=== PATIENT | female | born 1965 | race Caucasian/White ===

== ENCOUNTER 2018-12-10 15:09 | Emergency (ER) | payer BC ==
--- NOTE | 2018-12-10 15:13 | UC ---
Throat Pain/Nasal Duane HPI - HPI Summary HPI Summary: 53 year old female with sinus congestion starting Monday. no fever, + chills , fatigue. - History of Current Complaint Stated Complaint: SINUS Time Seen by Provider: 12/10/18 15:10 Hx Last Menstrual Period: NO periods/on meds - Allergies/Home Medications Allergies/Adverse Reactions: Allergies Allergy/AdvReac Type Severity Reaction Status Date / Time MS Ibuprofen [Ibuprofen] Allergy THROAT Verified 10/17/18 09:55 ITCHING, DIFF SWALLOWING PMH/Surg Hx/FS Hx/Imm Hx - Surgical History Surgical History: Yes Surgery Procedure, Year, and Place: 1991, Rt lumpectomy 1992, wisdom teeth extraction. D&C 2005-LASER VEINS IN BILATERAL LEGS 2013 - Social History Alcohol Use: Occasionally Substance Use Type: None Smoking Status (MU): Never Smoked Tobacco Review of Systems All Other Systems Reviewed And Are Negative: Yes Constitutional: Positive: Chills, Fatigue ENT: Positive: Nasal Discharge, Sinus Congestion, Sinus Pain/Tenderness Respiratory: Positive: Cough Is Patient Immunocompromised?: No Physical Exam Triage Information Reviewed: Yes Appearance: No Pain Distress, Well-Nourished, Ill-Appearing - minimal Eyes: Positive: Conjunctiva Clear ENT: Positive: Pharynx normal, TMs normal, Sinus tenderness - frontal, max b/l. Negative: Pharyngeal erythema Neck: Positive: Supple, Nontender, No Lymphadenopathy Respiratory: Positive: Chest non-tender, Lungs clear, Normal breath sounds, No respiratory distress, No accessory muscle use. Negative: Crackles, Rhonchi, Stridor, Wheezing Cardiovascular: Positive: RRR, No Murmur Neurological Exam: Normal Psychological Exam: Normal Skin Exam: Normal Throat Pain/Nasal Course/Dx - Course Course Of Treatment: sinusitis, abx given - Differential Dx/Diagnosis Provider Diagnosis: Acute bronchitis, Acute sinusitis Discharge - Sign-Out/Discharge Documenting (check all that apply): Patient Departure All imaging exams completed and their final reports reviewed: No Studies - Discharge Plan Condition: Good Disposition: HOME Prescriptions: Albuterol HFA INHALER* [Ventolin HFA Inhaler*] 1 - 2 puff INH Q4H PRN #1 mdi PRN Reason: shortness of breath, cough Azithromycin TAB* [Zithromax TAB (Z-NATHAN) 250 mg #6 tabs] 2 tab PO .TODAY, THEN 1 DAILY #8 tab Patient Education Materials: Sinusitis (ED), Acute Bronchitis (ED) Forms: *Work Release Referrals: Manish Motley MD [Primary Care Provider] - Additional Instructions: - Increase fluid intake - Follow up with primary physician within 5-7 days for re-evaluation - Antibiotics as directed - Tylenol/ Motrin as needed for pain - Over the counter medication as needed for symptoms - Go to ER with shortness of breath, chest pain, increased pain, fever > 102. - Albuterol inhaler every 4-6 hours as needed for shortness of breath, cough - Billing Disposition and Condition Condition: GOOD Disposition: Home
--- OUTSIDE RECORDS SUMMARY | 2018-12-10 15:17 | XMS REPORT | Continuity of Care Document ---
:1965 External Reference #:[id number] Author Name Ranjana Estrada Care Team Providers Name Role Phone Manish Motley MD Primary Care Physician Unavailable Payers Type Date Identification Numbers Payment Provider Subscriber Policy Number: [id number] [facility] Joanne Mejía PayID: [id number] [facility] [address] [place] [id number] Advance Directives Description No Information Available Problems Date Description Provider Status Onset: 07/27/2018 Acquired hallux rigidus Dilan Edwards MD Active Onset: 09/07/2018 Stress fracture of metatarsal bone Dilan Edwards MD Active Family History Date Family Member(s) Problem(s) Comments General Diabetes General Heart Disease General Hypertension General Cancer General Rheumatoid Arthritis Mother Osteoarthritis Mother Knee replaced Grandmother on her Dad's side had lupus Social History Type Date Description Comments Sex Unknown 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 ETOH Use Occasionally consumes alcohol Tobacco Use Start: Unknown Patient has never smoked Smoking Status Reviewed: 12/06/18 Patient has never smoked Exercise Type/Frequency Exercises regularly Allergies, Adverse Reactions, Alerts Date Description Reaction Status Severity Comments 02/07/2017 Ibuprofen Active Medications Medication Date Status Form Strength Qnty SIG Indications Ordering Provider Levothyroxine 00/00/ Active Tablets 88mcg 1 by mouth Unknown Sodium 0000 every day Trazodone HCL 00/00/ Active Tablets 2 tablet Unknown 0000 at bedtime as needed Restasis 00/ Active Emulsion 0.05% instill 1 Unknown 0000 drop into both eyes two times daily as needed Vitamin D / Active Capsules 1 by mouth Unknown (Cholecalciferol) 0000 every day Aleve / Active Tablets 220mg as needed Unknown 0000 Pataday / Active Solution 0.2% 1 drop Unknown 0000 each eye as needed itchiness Aria Allergy / Active Tablets 180mg 1 by mouth Unknown 0000 every day Cyclobenzaprine / Active Tablets 10mg take 1 tab Unknown HCL 0000 by mouth at bed time Diclofenac Sodium / Active Tablets DR 75mg 90tab take 1 Calvin 0000 s tablet Herson, twice a M.D. day with food as needed for severe pain Vitamin B12 / Active Tablets ER 1000mcg 1 by mouth Unknown 0000 every day Sheridan / Hx Tablets 0.35mg daily Unknown - 2017 Fish Oil / Hx Capsules 1 by mouth Unknown 0000 - every day 2017 Prednisone / Hx Tablets 20mg 2 tab by Unknown 0000 - mouth 5 2017 Medications Administered in Office Medication Date Status Form Strength Qnty SIG Indications Ordering Provider Depomedrol 40MG 09/12/ Administered Injection Jackie 2018 Kristin Reyna Depomedrol 40MG 09/12/ Administered Injection Jackie 2018 Kristin Reyna Triamcinolone 07/27/ Administered Injection Dilan (Kenalog) 2017 MD Jerry Immunizations Description No Information Available Vital Signs Date Vital Result Comment 12/06/2018 4:10pm Height 65.5 inches 5'5.50" Heart Rate 84 /min BP Systolic Sitting 112 mmHg BP Diastolic Sitting 79 mmHg Respiratory Rate 14 /min Pain Level 5 11/19/2018 3:35pm Height 65.5 inches 5'5.50" Weight 205.00 lb Respiratory Rate 16 /min Body Temperature 97.4 F BMI (Body Mass Index) 33.6 kg/m2 10/22/2018 2:49pm Height 65.5 inches 5'5.50" Weight 205.00 lb BP Systolic 122 mmHg BP Diastolic 76 mmHg Respiratory Rate 18 /min Pain Level 5 BMI (Body Mass Index) 33.6 kg/m2 10/17/2018 2:57pm Height 65.5 inches 5'5.50" Weight 206.50 lb Heart Rate 84 /min BP Systolic Sitting 123 mmHg BP Diastolic Sitting 95 mmHg Pain Level 6 O2 % BldC Oximetry 98 % BMI (Body Mass Index) 33.8 kg/m2 10/09/2018 3:14pm Height 65.5 inches 5'5.50" Weight 205.00 lb Respiratory Rate 15 /min Pain Level 5 BMI (Body Mass Index) 33.6 kg/m2 09/14/2018 8:30am Height 65.5 inches 5'5.50" Heart Rate 88 /min Respiratory Rate 18 /min Body Temperature 98.3 F Pain Level 6 09/12/2018 2:19pm Height 65.5 inches 5'5.50" Weight 205.00 lb Heart Rate 85 /min BP Systolic 122 mmHg BP Diastolic 83 mmHg Body Temperature 98.0 F BMI (Body Mass Index) 33.6 kg/m2 09/07/2018 1:58pm Height 65.25 inches 5'5.25" Heart Rate 96 /min Respiratory Rate 16 /min Body Temperature 97.6 F Pain Level 5 07/27/2018 1:24pm Height 65.25 inches 5'5.25" Heart Rate 68 /min Respiratory Rate 12 /min Body Temperature 97.8 F Pain Level 8 07/25/2018 2:56pm Height 65.25 inches 5'5.25" Weight 205.00 lb Heart Rate 74 /min BP Systolic 122 mmHg BP Diastolic 70 mmHg Respiratory Rate 12 /min Pain Level 4 BMI (Body Mass Index) 33.8 kg/m2 02/10/2017 11:23am Height 65 inches 5'5" Weight 185.00 lb Heart Rate 60 /min BP Systolic 108 mmHg BP Diastolic 68 mmHg Respiratory Rate 16 /min Body Temperature 98.0 F BMI (Body Mass Index) 30.8 kg/m2 02/12/2016 3:25pm Height 65 inches 5'5" Weight 180.00 lb BMI (Body Mass Index) 30.0 kg/m2 Results Test Date Facility Test Result H/L Range Note Laboratory test [facility] Thyroperoxidase AB 0.58 IU/ mL N <[address] [place] [address] [phone] 1,25 Dihydroxy [facility] Calcitriol 42 pg/mL 18- 78 [address] [place] [address] [phone] Vitamin B12 And [facility] Vitamin B12 1223 pg/mL High 180-914 3 Folate Serum 8 [address] [place] [address] [phone] Folic Acid (Folate) 13.07 ng/mL >3.99 4 Laboratory test 10/18/2018 [facility] Rheumatoid Factor < 10 IU/ mL N <[address] [place] [address] [phone] Hla B27 10/18/2018 [facility] Hla B27 Negative 6 [address] [place] [address] [phone] Hla B27 Interp See Comment 7 Laboratory test 10/18/2018 [facility] Erythrocyte Sed 13 mm/Hr N 0-30 8 finding [address] [facility] [address] [phone] C Reactive Protein 3.89 mg/L N <8.01 9 Connective Tissue 10/18/2018 [facility] Anti-Nuclear 2.0 U High 10 Panel [facility] [place] [address] [phone] Cyclic Citrullinated Peptide <15.6 U 11 Interpretation See Comment 12 1 Please check labs and xrays this week 2 ADDITIONAL INFORMATION This test was developed and its performance characteristics determined by [facility] in a manner consistent with CLIA requirements. This test has not been cleared or approved by the U.S. Food and Drug Administration. Test Performed by: [facility] - [facility] [address] [place] [address] 3 Normal Range 180 to 914 Indeterminate Range 145 to 180 Deficient Range <145 4 Please check labs and xrays this week 5 Please check labs and xrays this week 6 REFERENCE VALUE Not Applicable 7 RESULT: HLA-B27 antigen was not detected. ADDITIONAL INFORMATION Method: Flow Cytometry Performing Laboratory CLIA# [id number] Test Performed by: [facility] - [facility] [address] [place] [address] 8 Please check labs and xrays this week 9 Please check labs and xrays this week 10 Interpretation: Weak Positive (1.1-2.9) REFERENCE VALUE <=1.0 (Negative) 11 REFERENCE VALUE <20.0 (Negative) 12 Tests for antibodies to dsDNA and JOHANN antigens are not performed automatically unless the GERARDO result is > or= 3.0 U. Studies performed at [facility] indicate that positive GERARDO results <3.0 U are rarely accompanied by positive second order tests. Test Performed by: [facility] [employer] - [facility] [address] [place] [address] Procedures Date Code Description Status 10/23/2018 [id number] Bone Mineral Density Test Completed 09/12/2018 27322 Inject/Drain Joint/Bursa Small W/O US Completed 09/12/201864371 Injection Single Tendon Origin/Insertion Completed 09/04/2018 57226 Nerve Conduction 07-08 Studies Completed 09/04/2018 53604 Needle Electromyography Each Extremity W/Related Completed Paraspinal Areas 07/27/2018 42071 Inj/Aspir, Small Joint/Bursa W/ US Completed 02/10/2017 89470 Excision, Benign Trunk,Arms,Legs 0.6 CM To 1.0 CM Completed 10/14/2016 [id number] Mammogram Completed 10/13/2015 [id number] Mammogram Completed 09/03/2014 [id number] Mammogram Completed 08/28/2013 [id number] Mammogram Completed 07/13/2012 [id number] Mammogram Completed 04/08/2011 [id number] Mammogram Completed Encounters Type Date Location Provider Dx Diagnosis Office Visit 11/19/2018 Orthopedic Ivanna Hair.375D Stress fracture , 3:30p [facility] left foot, subs for fx w routn heal M20.22 Hallux rigidus, left foot Office Visit 10/22/2018 3:00p Orthopedic Dilan Edwards M84.375D Stress Services Of fracture, left [facility] 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 M84.375D Stress fracture, left foot, subs for fx w routn heal Office Visit 09/14/2018 8:30a Orthopedic Dilan Edwards M84.375D Stress Services Of fracture, left [facility] foot, subs for fx w routn heal M20.22 Hallux rigidus, left foot Office Visit 09/12/2018 Orthopedic Jackie M77.12 Lateral 2:15p [facility] Kristin Reyna epicondylitis, left [facility] elbow M18.12 Unil primary osteoarth of first carpometacarp joint, l hand Office Visit 09/07/2018 2:00p Orthopedic Dilan Edwards M84.375A Stress Services Of fracture, left [facility] foot, initial encounter for fracture M20.22 Hallux rigidus, left foot Office Visit 07/27/2018 1:30p Orthopedic Dilan Edwards M20.22 Hallux rigidus, [facility] left [facility] M20.21 Hallux rigidus, right foot Office Visit 07/25/2018 2:15p Orthopedic Mabel Guzman, M25.522 Pain in left [facility] RPA-C elbow M25.531 Pain in right wrist M25.532 Pain in left wrist Office Visit 02/10/2017 11:30a Surgical Oliver Li72.3 Sebaceous cyst [facility] Bateman M.D. R23.8 Other skin changes N63 Unspecified lump in breast Plan of Treatment Future Appointment(s):03/08/2019 3:15 pm - Dilan Edwards MD at [facility]12/06/2018 - Calvin Bains M.D.M19.049 Primary osteoarthritis , unspecified handFollow up:Follow up in 9 months or sooner if ydxrbfT15.2 Cervicalgia
--- OUTSIDE RECORDS SUMMARY | 2018-12-10 15:17 | XMS REPORT | Continuity of Care Document ---
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 Use Occasionally consumes alcohol Tobacco Use Start: Unknown Patient has never smoked Smoking Status Reviewed: 11/19/18 Patient has never smoked Exercise Type/Frequency Exercises regularly Allergies, Adverse Reactions, Alerts Date Description Reaction Status Severity Comments 02/07/2017 Ibuprofen Active Medications Medication Date Status Form Strength Qnty SIG Indications Ordering Provider Levothyroxine 00/00/ Active Tablets 88mcg 1 by mouth Unknown Sodium 0000 every day Trazodone HCL 00/00/ Active Tablets 2 tablet Unknown 0000 at bedtime as needed Restasis 00// Active Emulsion 0.05% instill 1 Unknown 0000 [...] Diclofenac Sodium / Active Tablets DR 75mg take 1 Unknown 0000 tablet twice a day with food Vitamin B12 / Active Tablets ER 1000mcg 1 by mouth Unknown 0000 every day Sheridan / Hx Tablets 0.35mg daily Unknown 0000 - 2017 Fish Oil / Hx Capsules 1 by mouth Unknown 0000 - every day 2017 Prednisone / Hx Tablets 20mg 2 tab by Unknown 0000 - mouth 5 2017 Medications Administered in Office Medication Date Status Form Strength Qnty SIG Indications Ordering Provider Depomedrol 40MG 09/12/ Administered Injection Jackie 2017 Kristin Reyna Depomedrol 40MG 09/12/ Administered Injection Jackie 2018 Kristin Reyna Triamcinolone 07/27/ Administered Injection Dilan (Kenalog) 2017 MD Jerry Immunizations Description No Information Available Vital Signs Date Vital Result Comment 11/19/2018 3:35pm Height 65.5 inches 5'5.50" Weight [...] Test Result H/L Range Note Laboratory test [facility] Thyroperoxidase AB 0.58 IU/ mL N <9 1 finding [address] [place] [address] [phone] 1,25 Dihydroxy [facility] Calcitriol 42 pg/mL 18- 78 2 Vitamin D [address] [place] [address] [phone] Vitamin B12 And [facility] Vitamin B12 1223 pg/mL High 180-914 3 Folate Serum [address] [place] [address] [phone] Folic Acid (Folate) 13.07 ng/mL >3.99 4 Laboratory test 10/18/2018 [facility] Rheumatoid Factor < 10 IU/ mL N <15 [address] [place] [address] [phone] Hla B27 10/18/2018 [facility] Hla B27 Negative [address] [place] [address] [phone] Hla B27 Interp See Comment 7 Laboratory test 10/18/2018 [facility] Erythrocyte Sed 13 mm/Hr N 0-30 [address] [place] [address] [phone] C Reactive Protein 3.89 mg/L N <8.01 9 Connective Tissue 10/18/2018 [facility] Anti-Nuclear 2.0 U High [address] [place] [address] [phone] Cyclic Citrullinated Peptide <15.6 U 11 Interpretation See Comment 12 1 Please check labs and xrays this week 2 ADDITIONAL INFORMATION This test was developed and its performance characteristics determined by [facility] in a manner consistent with CLIA requirements. This test has not been cleared or approved by the U.S. Food and Drug Administration. Test Performed by: [facility] - [facility] [address] [place] [address] 3 Normal Range 180 to 914 Indeterminate Range 145 to 180 Deficient Range <145 4 Please check labs and xrays this week 5 Please check labs and xrays this week 6 REFERENCE VALUE Not Applicable 7 RESULT: HLA-B27 antigen was not detected. ADDITIONAL INFORMATION Method: Flow Cytometry Performing Laboratory CLIA# [id number] Test Performed by: [facility] - [address] [address] 8 Please check labs and xrays this week 9 Please check labs and xrays this week 10 Interpretation: Weak Positive (1.1-2.9) REFERENCE VALUE <=1.0 (Negative) 11 REFERENCE VALUE <20.0 (Negative) 12 Tests for antibodies to dsDNA and JOHANN antigens are not performed automatically unless the GERARDO result is > or= 3.0 U. Studies performed at [facility] indicate that positive GERARDO results <3.0 U are rarely accompanied by positive second order tests. Test Performed by: [facility] [address] [place] [address] Procedures Date Code Description Status 10/23/2018 [id number] Bone Mineral Density Test Completed 09/12/2018 Inject/Drain Joint/Bursa Small W/O US Completed 09/12/201882935 Injection Single Tendon Origin/Insertion Completed 09/04/2018 46596 Nerve Conduction 07-08 Studies Completed 09/04/2018 30841 Needle Electromyography Each Extremity W/Related Completed Paraspinal Areas 07/27/2018 18717 Inj/Aspir, Small Joint/Bursa W/ US Completed 02/10/2017 07802 Excision, Benign Trunk,Arms,Legs 0.6 CM To 1.0 CM Completed 10/14/2016 [id number] Mammogram Completed 10/13/2015 [id number] Mammogram Completed 09/03/2014 [id number] Mammogram Completed 08/28/2013 [id number] Mammogram Completed 07/13/2012 [id number] Mammogram Completed 04/08/2011 [id number] Mammogram Completed Encounters Type Date Location Provider Dx Diagnosis Office Visit 10/22/2018 Orthopedic Dilan Edwards, M84.375D Stress fracture , 3:00p [facility] left foot, subs [...] Dilan Edwards MD at [facility]12/06/2018 3:20 pm - Calvin Bains M.D. at [facility]11/19/2018 - Dilan Edwards MDM84.375D Stress fracture, left foot , subsequent encounter for fdfomyvB06.22 Hallux rigidus, left footFollow up: Follow Up: in march on a day zion is with me
[2018-12-10 15:29] VITALS: BP 127/85
--- NOTE | 2018-12-15 10:00 | UC ---
Course/Dx - Diagnoses Provider Diagnoses: Acute bronchitis, Acute sinusitis Discharge - Sign-Out/Discharge Documenting (check all that apply): Post-Discharge Follow Up All imaging exams completed and their final reports reviewed: No Studies - Discharge Plan Condition: Good Disposition: HOME Prescriptions: Albuterol HFA INHALER* [Ventolin HFA Inhaler*] 1 - 2 puff INH Q4H PRN #1 mdi PRN Reason: shortness of breath, cough Azithromycin TAB* [Zithromax TAB (Z-NATHAN) 250 mg #6 tabs] 2 tab PO .TODAY, THEN 1 DAILY #8 tab Patient Education Materials: Sinusitis (ED), Acute Bronchitis (ED) Forms: *Work Release Referrals: Manish Motley MD [Primary Care Provider] - Additional Instructions: - Increase fluid intake - Follow up with primary physician within 5-7 days for re-evaluation - Antibiotics as directed - Tylenol/ Motrin as needed for pain - Over the counter medication as needed for symptoms - Go to ER with shortness of breath, chest pain, increased pain, fever > 102. - Albuterol inhaler every 4-6 hours as needed for shortness of breath, cough - Billing Disposition and Condition Condition: GOOD Disposition: Home
== END 2018-12-10 15:29 | disposition home or self-care (01) ==
LOC: UCEAST 15:09
DX: J01.90 Acute sinusitis, unspecified (principal); J20.9 Acute bronchitis, unspecified; Z88.6 Allergy status to analgesic agent
CPT/HCPCS: 99201; G0463

== ENCOUNTER 2019-02-21 18:24 | Emergency (ER) | payer BC ==
--- OUTSIDE RECORDS SUMMARY | 2019-02-21 18:29 | XMS REPORT | Continuity of Care Document ---
:1965 External Reference #:[id number] Author Name Mirtha Escobar Care Team Providers Name Role Phone Manish Motley MD Primary Care Physician Unavailable Payers Date Identification Numbers Payment Provider Subscriber Policy Number: [id number] [facility] Joanne Mejía PayID: [id number] [place] [id number] Advance Directives Description No Information Available Problems Date Description Provider Status Onset: 07/27/2018 Acquired hallux rigidus Dilan Edwards MD Active Onset: 09/07/2018 Stress fracture of metatarsal bone Dilan Edwards MD Active Family History Date Family Member(s) Observation Comments General Diabetes General Heart Disease General Hypertension General Cancer General Rheumatoid Arthritis Mother Osteoarthritis Mother Knee replaced Grandmother on her Dad's side had lupus Social History Type Date Description Comments Sex Unknown Lives With Spouse Occupation Managing Broker ETOH Use Occasionally consumes alcohol Tobacco Use Start: Unknown Patient has never smoked Smoking Status Reviewed: 02/07/19 Patient has never smoked Exercise Type/Frequency Exercises regularly Allergies, Adverse Reactions, Alerts Date Description Reaction Status Severity Comments 02/07/2017 Ibuprofen Active Medications Medication Date Status Form Strength Qnty SIG Indications Ordering Provider Levothyroxine 00/00/ Active Tablets 88mcg 1 by mouth Unknown Sodium 0000 every day Trazodone HCL 00/00/ Active Tablets 2 tablet Unknown 0000 at bedtime as needed Restasis 00/00/ Active Emulsion 0.05% instill 1 Unknown 0000 [...] Available Vital Signs Date Vital Result Comment 02/07/2019 2:50pm Height 65.5 inches 5'5.50" Weight 198.00 lb Heart Rate 80 /min BP Systolic 116 mmHg BP Diastolic 82 mmHg Respiratory Rate 16 /min Pain Level 4 BMI (Body Mass Index) 32.4 kg/m2 12/06/2018 4:10pm Height 65.5 inches 5'5.50" Heart [...] Test Result H/L Range Note Laboratory test [facility] Thyroperoxidase AB 0.58 IU/ mL N <9 1 finding [address] [place] [address] [phone] 1,25 Dihydroxy [facility] Calcitriol 42 pg/mL 18- 78 2 Vitamin D [address] [place] [address] [phone] Vitamin B12 And [facility] Vitamin B12 1223 pg/mL High 180-914 3 Folate Serum 8 [address] [place] [address] [phone] Folic Acid (Folate) 13.07 ng/mL >3.99 4 Laboratory test 10/18/2018 [facility] Rheumatoid Factor < 10 IU/ mL N <15 5 finding [address] [place] [address] [phone] Hla B27 10/18/2018 [facility] Hla B27 Negative [address] [place] [address] [phone] Hla B27 Interp See Comment 7 Laboratory test 10/18/2018 [facility] Erythrocyte Sed 13 mm/Hr N 0-30 8 finding [address] [facility] [place] [address] [phone] C Reactive Protein 3.89 mg/L N <8.01 9 Connective Tissue 10/18/2018 [facility] Anti-Nuclear 2.0 U High 10 Panel 101 [facility] [place] [address] [phone] Cyclic Citrullinated Peptide <15.6 U 11 Interpretation See Comment 12 1 Please check labs and xrays this week 2 ADDITIONAL INFORMATION This test was developed and its performance characteristics determined by [facility] in a manner consistent with CLIA requirements. This test has not been cleared or approved by the U.S. Food and Drug Administration. Test Performed by: [facility] [address] [place] [address] 3 Normal Range 180 to 914 Indeterminate Range 145 to 180 Deficient Range <145 4 Please check labs and xrays this week 5 Please check labs and xrays this week 6 REFERENCE VALUE Not Applicable 7 RESULT: HLA-B27 antigen was not detected. ADDITIONAL INFORMATION Method: Flow Cytometry Performing Laboratory CLIA# [id number] Test Performed by: [facility] - [address] [address] 8 Please check labs and xrays this week 9 Please check labs and xrays this week 10 Interpretation: Weak Positive (1.1-2.9) REFERENCE VALUE <=1.0 (Negative) 11 REFERENCE VALUE <20.0 (Negative) 12 Tests for antibodies to dsDNA and JOHANN antigens are not performed automatically unless the GERARDO result is > or= 3.0 U. Studies performed at [facility] indicate that positive GERARDO results <3.0 U are rarely accompanied by positive second order tests. Test Performed by: [facility] [address] [place] [address] Procedures Date Code Description Status 02/07/2019 Inject/Drain Joint/Bursa Intermediate W/O US Completed 02/07/2019 Inject/Drain Joint/Bursa Small W/O US Completed 10/23/2018 [id number] Bone Mineral Density Test Completed 09/12/2018 Inject/Drain Joint/Bursa Small W/O US Completed 09/12/2018 Injection Single Tendon Origin/Insertion Completed 09/04/2018 [id number] Nerve Conduction 07-08 Studies Completed 09/04/2018 50777 Needle Electromyography Each Extremity W/Related Completed Paraspinal Areas 07/27/2018 Inj/Aspir, Small Joint/Bursa W/ US Completed 02/10/2017 51380 Excision, Benign Trunk,Arms,Legs 0.6 CM To 1.0 CM Completed 10/14/2016 [id number] Mammogram Completed 10/13/2015 [id number] Mammogram Completed 09/03/2014 [id number] Mammogram Completed 08/28/2013 [id number] Mammogram Completed 07/13/2012 [id number] Mammogram Completed 04/08/2011 [id number] Mammogram Completed Encounters Type Date Location Provider Dx Diagnosis Office Visit 12/06/2018 Rheumatology Calvin Bains, M19.049 Primary 3:20p [facility] osteoarthritis, unspecified hand M54.2 Cervicalgia Office Visit 11/19/2018 3:30p Orthopedic Jay [id number] Stress Services Of fracture, left C.M.A. foot, subs for fx w routn heal M20.22 Hallux rigidus, left foot Office Visit 10/22/2018 3:00p Jay [id number] Stress Services Of fracture, left C.M.A. foot, [...] w routn heal Office Visit 09/14/2018 8:30a Jay Lin84.375D Stress Services Of fracture, left C.M.A. foot, [...] foot Office Visit 07/27/2018 1:30p Orthopedic Dilan Edwards, M20.22 Hallux rigidus, Services Of left foot Enrique.M.ABraulio M20.21 Hallux rigidus, right foot Office Visit 07/25/2018 2:15p Orthopedic Mabel Guzman, M25.522 Pain in left [facility] elbow M25.531 Pain in right wrist M25.532 Pain in left wrist Office Visit 02/10/2017 11:30a Surgical Oliver Li72.3 Sebaceous cyst [facility] M.D. R23.8 Other skin changes N63 Unspecified lump in breast Plan of Treatment Future Appointment(s):03/08/2019 3:15 pm - Dilan Edwards MD at [facility].ABraulio02/07/2019 - Jackie Reyna M.D.M18.12 Unilateral primary osteoarthritis of first carpometacarpal jFollow up:Follow up: As tnjlruR25.12 Lateral epicondylitis, left elbow
[2019-02-21 18:37] VITALS: BP 113/96
--- NOTE | 2019-02-21 19:04 | UC ---
Eye Complaint HPI - HPI Summary HPI Summary: L eye swelling, itching and watering today after visiting a house w/ cats. Able to go home and flush. - History of Current Complaint Chief Complaint: UCEye Stated Complaint: EYE COMPLAINT Time Seen by Provider: 02/21/19 18:27 Hx Obtained From: Patient Hx Last Menstrual Period: NO periods/on meds Onset/Duration: Sudden Onset Pain Intensity: 3 Pain Scale Used: 0-10 Numeric Location of Injury: Conjunctiva, Sclera Character: Sharp Aggravating Factor(s): Nothing Alleviating Factor(s): Nothing - Allergies/Home Medications Allergies/Adverse Reactions: Allergies Allergy/AdvReac Type Severity Reaction Status Date / Time ibuprofen Allergy Difficulty Verified 02/21/19 18:38 Breathing/Wheezing Home Medications: Home Medications Cyclobenzaprine (NF) [Cyclobenzaprine 5 MG (NF)] 5 mg PO BEDTIME 02/21/19 [ History Confirmed 02/21/19] Diclofenac Sodium 50 mg PO BID 02/21/19 [History Confirmed 02/21/19] PMH/Surg Hx/FS Hx/Imm Hx - Additional Past Medical History Additional PMH: no chronic conditions Endocrine History: Thyroid Disease - Surgical History Surgical History: Yes Surgery Procedure, Year, and Place: 1991, Rt lumpectomy 1992, wisdom teeth extraction. D&C 2005-LASER VEINS IN BILATERAL LEGS 2013 - Social History Alcohol Use: Occasionally Substance Use Type: None Smoking Status (MU): Never Smoked Tobacco Review of Systems All Other Systems Reviewed And Are Negative: Yes Constitutional: Positive: Negative Skin: Negative: Rash Eyes: Positive: Drainage, Eye Redness. Negative: Blurred Vision, Diplopia, Photophobia ENT: Negative: Sinus Congestion Respiratory: Negative: Other - wheezing Physical Exam Triage Information Reviewed: Yes Appearance: Well-Appearing Vital Signs: Initial Vital Signs Temp 97.8 F 02/21/19 18:31 Pulse 99 02/21/19 18:31 Resp 16 02/21/19 18:31 BP 113/96 02/21/19 18:31 Pulse Ox 100 02/21/19 18:31 Vital Signs Reviewed: Yes Eyes: Positive: Conjunctiva Inflamed - L, Discharge - watery, Other: - chemosis noted L. PERRLA, EOM UNREMARKABLE. Eye Complaint Course/Dx - Course Course Of Treatment: Acute moderate chemosis noted in L eye from possible allergen from cat. Pupils reactive and should be evaluated w/in 24hrs. w/ ophthalm. NO pain w/ EOM. - Differential Dx/Diagnosis Differential Diagnosis/HQI/PQRI: Conjunctivitis, Corneal Abrasion Provider Diagnosis: Chemosis of left conjunctiva Discharge - Sign-Out/Discharge Documenting (check all that apply): Patient Departure All imaging exams completed and their final reports reviewed: No Studies - Discharge Plan Condition: Good Disposition: HOME Prescriptions: Artificial Tear OPHTH.OINT* [Lacrilube OINT*] 1 applic LEFT EYE Q2H PRN #1 ophth.oint PRN Reason: Allergy Symptoms diPHENhydraMINE PO* [Benadryl PO 50 MG CAP*] 50 mg PO Q6H PRN #24 cap PRN Reason: Allergy Symptoms Patient Education Materials: Antihistamine (By mouth) Forms: *Work Release Referrals: Ashanti Suarez MD [Medical Doctor] - 1 Day (moderate chemosis, unclear etiology. vision intact) Additional Instructions: Please make appt w/ eye doctor w/in 24 hrs. Use cold compress. take benadryl as rx'd. - Billing Disposition and Condition Condition: GOOD Disposition: Home
== END 2019-02-21 19:15 | disposition home or self-care (01) ==
LOC: UCEAST 18:24
DX: H11.422 Conjunctival edema, left eye (principal); Z88.6 Allergy status to analgesic agent
CPT/HCPCS: 99212; G0463